=== PATIENT | male | born 1995 | race Caucasian/White ===

== ENCOUNTER 2021-01-06 16:17 | Emergency (ER) | payer OTHER, SELFPAY ==
[2021-01-06 16:24] VITALS: BP 122/86; PULSE 77; RESP 20; TEMP 37.1; O2SAT 97
[2021-01-06] MEDS: DOXYCYCLINE HYCLATE 100 MG TABLET PO (17:17)
--- NOTE | 2021-01-06 17:25 | ED.GENADULT ---
HPI - General Adult General Chief complaint: Wound/Laceration Stated complaint: TATTOO INFECTED Time Seen by Provider: 01/06/21 16:41 Source: patient Mode of arrival: ambulatory Limitations: no limitations History of Present Illness HPI narrative: Patient is a 25-year-old male who presents to emergency department for evaluation of redness and irritation of a tattoo area performed on Wednesday along the medial aspect of the left ankle notes moderate aching pain worse with touch and activity denies fever but does note some chills Related Data Home Medications Medication Instructions Recorded Confirmed beclomethasone dipropionate [Qvar 2 inh INHALATION BID 09/27/19 01/06/21 RediHaler] Allergies Allergy/AdvReac Type Severity Reaction Status Date / Time No Known Allergies Allergy Verified 01/06/21 16:26 Review of Systems Review of Systems: All systems reviewed & are unremarkable except as noted in HPI and below PMFSH Past Medical History Medical History No pertinent past medical history Surgical History Surgical History History of orthopedic surgery Family History Family History (Updated 09/20/18 @ 08:34 by DOCTOR UNKNOWN) Mother Patient's mother is in good health Father Patient's father is in good health Sibling Patient's brother is in good health Social History Social History Smoking status: Never smoker Alcohol intake: current Gender identity (if verbalized by the patient): Male Exam Narrative: Exam Narrative: GENERAL: Well-appearing, well-nourished, and in no acute distress. HEAD: Normocephalic, atraumatic. EYES: PERRLA and EOMI. ENT: Nares clear, no rhinorrhea or epistaxis. Mucous membranes moist. CHEST: Clear to auscultation. No respiratory distress. No wheezes rales or rhonchi HEART: Regular rate and rhythm. No murmur heard. EXTREMITIES: Normal range of motion. No edema. SKIN: Warm, dry, no rash. Patient with a tattoo to the medial aspect of the left ankle with surrounding erythema no lymphangitic streaking or drainage or fluctuance NEURO: No focal deficits. Alert and oriented x3. Neurovascularly intact PSYCH: Normal mood and affect. Course Course Emergency Course: Patient in the room in no distress aware of case findings treatment plan and diagnosis Vital Signs Vital signs: Vital Signs Temperature 98.8 F 01/06/21 16:24 Pulse Rate 77 01/06/21 16:24 Respiratory Rate 20 01/06/21 16:24 Blood Pressure 122/86 01/06/21 16:24 Pulse Oximetry 97 01/06/21 16:24 Temperature 98.8 F 01/06/21 16:24 Pulse Rate 77 01/06/21 16:24 Respiratory Rate 20 01/06/21 16:24 Blood Pressure 122/86 01/06/21 16:24 Pulse Oximetry 97 01/06/21 16:24 Medical Decision Making MDM Narrative Medical decision making narrative: Patient with likely inflammatory changes given the recent tattoo will be covered for cellulitis advised to follow with primary care agreeing to do so Vital Signs Vital Signs: Vital Signs Temperature 98.8 F 01/06/21 16:24 Pulse Rate 77 01/06/21 16:24 Respiratory Rate 20 01/06/21 16:24 Blood Pressure 122/86 01/06/21 16:24 Pulse Oximetry 97 01/06/21 16:24 Temperature 98.8 F 01/06/21 16:24 Pulse Rate 77 01/06/21 16:24 Respiratory Rate 20 01/06/21 16:24 Blood Pressure 122/86 01/06/21 16:24 Pulse Oximetry 97 01/06/21 16:24 Discharge Plan Discharge Clinical Impression: Cellulitis of left leg Patient Disposition: Home, Self-Care Condition: Stable Instructions: Antibiotic Form, Cellulitis (ED) Additional Instructions: Follow up with primary care in the next 2-3 days for re-evaluation return if symptoms worsen or concerns, any increase in redness swelling pain or fever over 100.5 Clean wound with mild soapy water. Apply antibiot
[2021-01-06] MEDS: TETANUS,DIPHTHERIA,AC PERTUSSIS ADULT (0.5 ML) BOOSTRIX IM (17:52)
== END 2021-01-06 18:00 | disposition home or self-care (01) ==
PROVIDERS: Emergency Provider Emergency Medicine; PCP Family Medicine
DX: L03.116 Cellulitis of left lower limb (principal); Z23 Encounter for immunization
CPT/HCPCS: 90471; 90715; 99283; A9270

== ENCOUNTER 2021-09-21 16:32 | Emergency (ER) | payer OTHER, SELFPAY ==
--- NOTE | ~2021-09-21 | XR_ITS ---
XR chest 2V DATE: 09/21/2021 21:57 INDICATION: Cough and shortness of breath for 4 days TECHNIQUE: PA and lateral views COMPARISON: 01/31/2018 PA and lateral chest FINDINGS: Normal heart size. No hilar or mediastinal enlargement. No pulmonary infiltrate or consolid ation, pleural effusion or pulmonary vascular congestion or pneumothorax. There is dextroscoliosis of the thoracic spine. Bilateral thoracolumbar spinal rods and pedicle screw s. IMPRESSION: No active cardiopulmonary disease Reviewed, dictated and finalized at location A. [employer]
[2021-09-21 16:52] VITALS: BP 134/78; PULSE 70; RESP 14; TEMP 36.8; O2SAT 98
[2021-09-21] MEDS: methylPREDNISolone SOD SUCC 125 MG VIAL IM (21:24)
[2021-09-21 21:25] VITALS: PULSE 81; RESP 16
[2021-09-21] MEDS: ALBUTEROL SULFATE NEB 2.5 MG/3 ML INH INHALATION ×2 (21:33→22:11)
[2021-09-21] MEDS: IPRATROPIUM BR 0.02% INH SOLN 0.5 MG/2.5 ML VIAL INHALATION (21:33)
[2021-09-21 21:36] VITALS: PULSE 67; RESP 16
--- NOTE | 2021-09-21 21:44 | ED.GENADULT ---
HPI - General Adult General Chief complaint: Upper Respiratory Infection Stated complaint: cough/st Time Seen by Provider: 09/21/21 21:13 Source: patient Mode of arrival: ambulatory Limitations: no limitations History of Present Illness HPI narrative: Pt presents for evaluation of respiratory complaints since last . He states he was on a trip to [place] prior to that time and got back to the area the day prior to symptom onset. He states his cough has been productive of yellow sputum. He has associated SOB and wheezing. He has a known history of asthma. He ran out of his albuterol inhaler. He was able to get an inhaler today and has used it 3 times with some improvement in his symptoms thereafter. She reports a frontal headache, fatigue and sore throat. She denies any otalgia, chest pain, nausea, vomiting, diarrhea. No known recent sick contacts. No known personal history of Covid. He has received both doses of his Covid vaccination. He does vape and smokes marijuana but denies tobacco use and illicit drug use. He states he does not feel well enough to go to work tomorrow. He has a neb machine at home but does not have solution. He is asking for a refill on neb solution. Related Data Home Medications Medication Instructions Recorded Confirmed beclomethasone dipropionate [Qvar 2 inh INHALATION BID 09/27/19 01/06/21 RediHaler] Allergies Allergy/AdvReac Type Severity Reaction Status Date / Time No Known Allergies Allergy Verified 01/06/21 16:26 Review of Systems Review of Systems: CONSTITUTIONAL: Denies fever, chills, or sweats. EYES: Denies visual changes, redness, or discharge. ENT: Reports sore throat. Denies otalgia, tinnitus or hearing loss CARDIOVASCULAR: Denies chest pain, palpitations, or edema. RESPIRATORY:Reports productive cough of yellow sputum. Reports SOB earlier, now resolved GASTROINTESTINAL: Denies abdominal pain, nausea, vomiting, or diarrhea. GENITOURINARY: Denies dysuria or hematuria. SKIN: Denies rash or itching. MUSCULOSKELETAL: Denies back pain, joint pain, or myalgia. NEUROLOGIC: Reports headache. Denies numbness, dizziness, or weakness. PSYCHIATRIC: Denies anxiety or depression. [facility] Past Medical History Medical History Asthma No pertinent past medical history Scoliosis Surgical History Surgical History History of neck surgery History of orthopedic surgery Family History Family History Mother Patient's mother is in good health Father Patient's father is in good health Sibling Patient's brother is in good health Social History Social History (Updated 09/21/21 @ 22:01 by Yuval Shannon [facility]) Smoking status: Never smoker Tobacco type: e-cigarettes/vaping Alcohol intake: current Substance use type: marijuana Additional living arrangements comments: lives with girlfriend Gender identity (if verbalized by the patient): Male Sexual Orientation (if Verbalized by the Patient): Straight or Heterosexual Spiritual care concerns: No Exam Narrative: GENERAL: Well-appearing, well-nourished, and in no acute distress. HEAD: Normocephalic, atraumatic. EYES: PERRLA and EOMI. ENT: Nares clear, no rhinorrhea or epistaxis. Mucous membranes moist. Oropharynx without tonsillar hypertrophy exudate or other lesions, however there is erythema present. Bilateral TMs pearly vega nonbulging NECK: Supple. No adenopathy or masses. No carotid bruits or JVD CHEST: Mild wheezing noted in right lung adrian anteriorly. No respiratory distress. No rales or rhonchi HEART: Regular rate and rhythm. No murmur heard. Normal peripheral pulses. ABDOMEN: Soft, nontender, nondistended, normal active bowel sounds. EXTREMITIES: Normal range of motion. No edema. SKIN: Warm, dry, no rash. NE
[2021-09-21 22:07] VITALS: PULSE 60; RESP 20
[2021-09-21 22:15] VITALS: PULSE 81; RESP 20
[2021-09-21 22:24] VITALS: PULSE 94; RESP 18; O2SAT 98
== END 2021-09-21 22:25 | disposition home or self-care (01) ==
PROVIDERS: Emergency Provider Nurse Practitioner; PCP Family Medicine
DX: J45.901 Unspecified asthma with (acute) exacerbation (principal); F17.290 Nicotine dependence, other tobacco product, uncomplicated
CPT/HCPCS: 71046; 87880; 94640; 96372; 99284; J2930

== ENCOUNTER 2021-09-24 11:00 | Emergency (ER) | payer OTHER, SELFPAY ==
[2021-09-24 11:14] VITALS: BP 110/77; PULSE 60; RESP 16; TEMP 36.2; O2SAT 99
--- NOTE | 2021-09-24 11:34 | ED.URI ---
HPI - URI/Sore Throat General Chief Complaint: Upper Respiratory Infection Stated Complaint: sob Source: patient and RN notes reviewed Mode of arrival: ambulatory Limitations: no limitations History of Present Illness HPI Narrative: Abhi is a 27-year-old male patient who ambulated into the [facility]. Patient states that he was seen 09/21/2021 at [facility]. Patient was diagnosed with asthma exacerbation. Patient was put on prednisone, Qvar, and albuterol inhalers. Patient states he is better. Patient states she should he still has minimal shortness of breath. Patient states he feels he is unable to go back to work today. Patient is requesting a work note. Related Data Home Medications Medication Instructions Recorded Confirmed beclomethasone dipropionate [Qvar 2 inh INHALATION BID 09/27/19 01/06/21 RediHaler] Allergies Allergy/AdvReac Type Severity Reaction Status Date / Time No Known Allergies Allergy Verified 01/06/21 16:26 Review of Systems Review of Systems: CONSTITUTIONAL: Denies body aches, fever, chills, or sweats. EYES: Denies visual changes, redness, or discharge. ENT: Denies rhinorrhea, congestion, sore throat, or otalgia. CARDIOVASCULAR: Denies chest pain, palpitations, or edema. RESPIRATORY: Denies cough or dyspnea; + wheezing GASTROINTESTINAL: Denies abdominal pain, nausea, vomiting, or diarrhea. GENITOURINARY: Denies dysuria or hematuria. SKIN: Denies rash, itching, or wounds. MUSCULOSKELETAL: Denies back pain, joint pain, or myalgia. NEUROLOGIC: Denies headache, numbness, tingling, or weakness. PSYCH: Denies depression or anxiety. All systems reviewed & are unremarkable except as noted in HPI and below PMFSH Past Medical History Medical History Asthma No pertinent past medical history Scoliosis Surgical History Surgical History History of neck surgery History of orthopedic surgery Family History Family History Mother Patient's mother is in good health Father Patient's father is in good health Sibling Patient's brother is in good health Social History Social History Smoking status: Never smoker Tobacco type: e-cigarettes/vaping Alcohol intake: current Substance use type: marijuana Additional living arrangements comments: lives with girlfriend Gender identity (if verbalized by the patient): Male Sexual Orientation (if Verbalized by the Patient): Straight or Heterosexual Spiritual care concerns: No Comments At time of signature, I have reviewed and agree with nursing past medical, surgical, social and family history unless otherwise noted. Please see nursing chart for further information. There is no relevant family history pertinent to the presenting complaint Exam Narrative: GENERAL: Well-appearing, well-nourished, and in no acute distress. HEAD: Normocephalic, atraumatic. EYES: EOMI. No redness or drainage. Conjunctivae normal. ENT: Mucous membranes pink and moist. Nares clear. No rhinorrhea. TMs normal bilaterally. Throat normal. Uvula midline. NECK: Normal AROM. Supple. No lymphadenopathy. CHEST: No respiratory distress. Scattered expiratory wheezing noted.. MUSCULOSKELETAL: No bony tenderness. EXTREMITIES: Normal range of motion. No edema. SKIN: Warm, dry, no rash. Capillary refill normal. Normal skin turgor. NEURO: No focal deficits. Alert and oriented x3. Gait steady. PSYCH: Normal affect. No signs of depression or anxiety. Course Vital Signs Vital signs: Vital Signs Temperature 36.2 C L 09/24/21 11:14 Pulse Rate 60 09/24/21 11:14 Respiratory Rate 16 09/24/21 11:14 Blood Pressure 110/77 09/24/21 11:14 Pulse Oximetry 99 09/24/21 11:14 Temperature 36.2 C L 09/24/21 11:14 Pulse Rat
== END 2021-09-24 12:07 | disposition home or self-care (01) ==
PROVIDERS: Emergency Provider Nurse Practitioner Family; PCP Family Medicine
DX: J45.41 Moderate persistent asthma with (acute) exacerbation (principal); F12.90 Cannabis use, unspecified, uncomplicated; J45.909 Unspecified asthma, uncomplicated; M41.9 Scoliosis, unspecified; Z20.822 Contact with and (suspected) exposure to COVID-19
CPT/HCPCS: 87426; 99213; C9803; G0463

== ENCOUNTER 2022-02-09 16:14 | Emergency (ER) | payer OTHER, SELFPAY ==
[2022-02-09 16:23] VITALS: BP 133/76; PULSE 61; RESP 16; TEMP 36.9; O2SAT 99
--- NOTE | 2022-02-09 16:33 | ED.ASTHMA ---
HPI - Asthma General Chief Complaint: Asthma Stated Complaint: Asthma Time Seen by Provider: 02/09/22 16:36 Source: patient, RN notes reviewed and old records reviewed Mode of arrival: ambulatory Limitations: no limitations History of Present Illness HPI Narrative: 26-year-old male presents to the [facility] with complaints of ongoing asthma. States he gets it when the weather changes. Has a history of asthma. Is out of his Qvar and his nebulizer solution. Has been using his nebulizer solution every 2-4 hours for the last 5 days. Denies chest pain. Last nebulizer treatment was less than 2 hours prior to arrival. Patient appears in no distress. MD complaint: asthma attack and wheezing Related Data Home Medications Medication Instructions Recorded Confirmed beclomethasone dipropionate [Qvar 2 inh INHALATION BID 09/27/19 02/09/22 RediHaler] albuterol sulfate 2 puff INHALATION DIRECTED 02/09/22 02/09/22 montelukast 10 mg PO DAILY 02/09/22 02/09/22 Allergies Allergy/AdvReac Type Severity Reaction Status Date / Time No Known Allergies Allergy Verified 02/09/22 16:20 Review of Systems Review of Systems: All systems reviewed & are unremarkable except as noted in HPI and below Constitutional: Constitutional: Reports no additional constitutional complaints, Denies chills and Denies fever(s) Eyes: Eyes: Reports no additional eye complaints ENT: Reports system reviewed and no additional complaints, except as documented Cardiovascular: Cardiovascular: Reports no additional cardiovascular complaints Respiratory: Respiratory: Reports as per HPI, Reports cough and Reports wheezing Comments: Asthma symptoms. Gastrointestinal: Gastrointestinal: Reports no additional gastrointestinal complaints Musculoskeletal: Musculoskeletal: Reports no additional musculoskeletal complaints Integumentary/Breasts: Skin/Breast: Reports system reviewed and no additional complaints, except as docu Neurologic: Reports system reviewed and no additional complaints, except as documented Psychiatric: Psychiatric: Reports no additional psychiatric complaints Allergic/Immunologic: Allergic/Immunologic: Reports no additional allergic/immunologic complaints PMFSH Past Medical History Medical History Asthma No pertinent past medical history Scoliosis Surgical History Surgical History History of neck surgery History of orthopedic surgery Family History Family History Mother Patient's mother is in good health Father Patient's father is in good health Sibling Patient's brother is in good health Social History Social History Smoking status: Never smoker Tobacco type: e-cigarettes/vaping Alcohol intake: current Substance use type: marijuana Additional living arrangements comments: lives with girlfriend Gender identity (if verbalized by the patient): Male Sexual Orientation (if Verbalized by the Patient): Straight or Heterosexual Spiritual care concerns: No Comments At the time of my signature, I reviewed and agree with the nursing past medical, surgical, social, and family history. There is no relevant family history pertinent to the patient complaint. Exam Const: General: healthy appearing, no acute distress and alert Nutritional Appearance: well nourished Orientation/consciousness: patient oriented x3 Limitations: no limitations HENMT: Head: normal to inspection Ears: external ears normal, TM's normal bilaterally and EAC's normal General nose exam: Normal external nose present Face and sinus: normal facial exam Throat: posterior oropharynx normal and uvula midline Eyes: Pupils: Equal, round and reactive pupils present Neck: Neck: normal visual inspection, no lymphadenopathy and n
== END 2022-02-09 16:46 | disposition home or self-care (01) ==
PROVIDERS: Emergency Provider Nurse Practitioner; PCP Family Medicine
DX: J45.909 Unspecified asthma, uncomplicated (principal); F17.290 Nicotine dependence, other tobacco product, uncomplicated; M41.9 Scoliosis, unspecified
CPT/HCPCS: 99213; G0463